=== PATIENT | male | born 1990 | race Caucasian/White ===

== ENCOUNTER 2020-07-26 16:29 | Emergency (ER) | payer MEDICAID, OTHER ==
--- NOTE | 2020-07-26 16:44 | NUR ---
NIL X1
--- NOTE | 2020-07-26 16:47 | NUR ---
NIL X 2
--- NOTE | 2020-07-26 17:00 | NUR ---
NIL X 3
--- NOTE | 2020-07-26 17:13 | NUR ---
DISCHARGED FROM SYSTEM
== END 2020-07-26 17:14 | disposition left against medical advice (07) ==
LOC: ED 17:10
DX: H57.12 Ocular pain, left eye (principal); Z53.21 Procedure and treatment not carried out due to patient leaving prior to being seen by health care provider